=== PATIENT | male | born 1985 | race Caucasian/White ===

== ENCOUNTER 2017-05-31 19:30 | Emergency (ER) | payer OTHER ==
[~2017-05-31] VITALS: Ht 162.6 cm; Wt 74.8 kg
[2017-05-31] MEDS ORDERED: ZOFRAN8 MG PO (20:21)
[2017-05-31] MEDS ORDERED: THIAMINE HCL100 MG PO (20:21)
[2017-05-31] MEDS ORDERED: CHLORDIAZEPOXID25 MG PO (20:22)
[2017-05-31] MEDS ORDERED: CLONIDINE HCL0.1 MG PO (22:23)
== END 2017-05-31 22:31 | disposition home or self-care (01) ==
LOC: ED 19:30
DX: F10.239 Alcohol dependence with withdrawal, unspecified (principal); I10 Essential (primary) hypertension; F17.200 Nicotine dependence, unspecified, uncomplicated; Z79.899 Other long term (current) drug therapy
CPT/HCPCS: 80053; 85025; 96360; 99283; J7030

== ENCOUNTER 2017-07-13 18:55 | Emergency (ER) | payer OTHER ==
[~2017-07-13] VITALS: Ht 162.6 cm; Wt 89.4 kg
[~2017-07-13 18:55] MED LIST: CHLORDIAZEPOXID25 MG PO; CLONIDINE HCL0.1 MG PO; THIAMINE HCL100 MG PO; ZOFRAN8 MG PO
[2017-07-13] MEDS ORDERED: ZESTRIL20 MG PO (19:09)
== END 2017-07-13 22:27 | disposition home or self-care (01) ==
LOC: ED 18:55
DX: I10 Essential (primary) hypertension (principal); F10.239 Alcohol dependence with withdrawal, unspecified; F17.200 Nicotine dependence, unspecified, uncomplicated; Z98.890 Other specified postprocedural states; Z79.899 Other long term (current) drug therapy
CPT/HCPCS: 36415; 80053; 85025; 85610; 85730; 86850; 86900; 86901; 96361; 96374; 99284; J2405; J7030; J7040

== ENCOUNTER 2018-12-06 10:02 | Emergency (ER) | payer OTHER ==
[~2018-12-06] VITALS: Ht 162.6 cm; Wt 89.4 kg
[~2018-12-06 10:02] MED LIST changes: +DEPAKOTE250 MG PO; +TRAZODONE HCL50 MG PO; +ZESTRIL20 MG PO
[2018-12-06] MEDS ORDERED: ZOLOFT50 MG PO (10:18)
[2018-12-06] MEDS ORDERED: RISPERIDONE2 MG PO (10:19)
[2018-12-06] MEDS ORDERED: PROMETHAZINE12.5 M1 PO (11:34)
[2018-12-06] MEDS ORDERED: OMEPRAZOLE20 MG PO (11:35)
== END 2018-12-06 11:46 | disposition home or self-care (01) ==
LOC: ED 10:02
DX: R11.10 Vomiting, unspecified (principal); I10 Essential (primary) hypertension; F17.200 Nicotine dependence, unspecified, uncomplicated; Z79.899 Other long term (current) drug therapy
CPT/HCPCS: 80053; 81001; 83690; 85025; 96361; 96374; 96375; 99284-25; J2405; J2550; J7030

== ENCOUNTER 2022-08-19 09:51 | Emergency (ER) | payer OTHER ==
[~2022-08-19] VITALS: Ht 162.6 cm; Wt 83.5 kg
[~2022-08-19 09:51] MED LIST changes: +OMEPRAZOLE20 MG PO; +PROMETHAZINE12.5 M1 PO; +RISPERIDONE2 MG PO; +ZOLOFT50 MG PO
[2022-08-19] MEDS ORDERED: HYDROCODON-ACE1 EA11 PO (12:05)
== END 2022-08-19 12:13 | disposition home or self-care (01) ==
LOC: ED 09:51
DX: R07.89 Other chest pain (principal); I10 Essential (primary) hypertension; Z87.891 Personal history of nicotine dependence; Z79.899 Other long term (current) drug therapy
CPT/HCPCS: 71046; 94664; A9270

== ENCOUNTER 2023-11-02 11:48 | Emergency (ER) | payer OTHER ==
[~2023-11-02] VITALS: Ht 162.6 cm; Wt 96.3 kg
[~2023-11-02 11:48] MED LIST changes: +HYDROCODON-ACE1 EA11 PO
[2023-11-02] MEDS ORDERED: LISINOPRIL10 MG PO (14:34)
[2023-11-02 14:44] VITALS: BP 151/88
== END 2023-11-02 14:44 | disposition home or self-care (01) ==
LOC: ED 11:48
DX: I10 Essential (primary) hypertension (principal); Z87.891 Personal history of nicotine dependence
CPT/HCPCS: 99283